=== PATIENT | female | born 1945 | race Caucasian/White ===

== ENCOUNTER 2021-10-26 19:14 | Inpatient (IN) | payer MEDICARE, OTHER ==
[~2021-10-26] VITALS: Ht 152.4 cm; Wt 68.9 kg
[~2021-10-26 19:14] MED LIST: ALENDRONATE SOD70 MG PO; ASPIR 8181 MG PO; ASPIRIN81 MG PO; ATENOLOL50 MG PO; CALCIUM 600 +1 EACH PO; CALCIUM/VITAMIN D PO; CEFDINIR300 MG PO; CEFUROXIME250 MG PO; CETIRIZINE HCL10 MG PO; CLOPIDOGREL75 MG PO; CORTISPORIN-TC10 M1 LEFT EAR; FIORICET 50-301 EACH PO; GABAPENTIN300 MG PO; GLIMEPIRIDE2 MG PO; GLIPIZIDE10 MG PO; GLIPIZIDE5 MG PO; JANUVIA100 MG PO; L-ARGININE500 MG PO; LANTUS 3ML100 UNITS/ SC; LANTUS100 UNITS/ INJ; LEVOTHYROXINE50 MCG PO; LEVOTHYROXINE75 MCG PO; LEVOTHYROXINE88 MCG PO; LOSARTAN POTAS100 MG PO; METFORMIN HCL1000 MG PO; METFORMIN HCL500 MG PO; NITROSTAT0.4 MG SL; NOVOLIN N100 UNIT/1 SC; OMEPRAZOLE20 M1 PO; OSENI PO; PANTOPRAZOLE SO40 MG PO; SIMVASTATIN40 MG PO; ULTRAM50 MG PO; VICTOZA 2-0.6 MG/0.1 SC; ZESTRIL20 MG PO; calcium PO
[2021-10-26] MEDS ORDERED: SODIUM CHLORIDE 0.9% 1000ML 1,000 ML IV SCH (20:00)
[2021-10-26 20:13] LABS: BASOPHILS % 0.2 % (0.0-1.0); EOSINOPHILS % 0.1 % (0.0-6.0); HEMATOCRIT 32.5 % (34.2-44.1); HEMOGLOBIN 10.7 g/dL (12.0-16.0); LYMPHOCYTES # (AUTO) 0.9 (1.0-3.2); LYMPHOCYTES % 10.6 % (18.0-39.1); MEAN CORPUSCULAR HEMOGLOBIN 28.1 pg (28-32); MEAN CORPUSCULAR HGB CONC 32.9 g/dL (31-35); MEAN CORPUSCULAR VOLUME 85.3 fL (81-99); MONOCYTES # (AUTO) 0.6 (0.2-0.8); MONOCYTES % 7.4 % (4.4-11.3); NEUTROPHILS % 81.5 % (38.7-80.0); PLATELET COUNT 166 x10e3/uL (140-360); RED BLOOD COUNT 3.81 x10e6/uL (3.6-5.1)
[2021-10-26 20:34] LABS: ALBUMIN 3.3 g/dL (3.5-5.0); ALBUMIN/GLOBULIN RATIO 0.7 (0.8-2.0); ANION GAP 13.3 mmol/L (8-16); CALCIUM 8.3 mg/dL (8.4-10.2); CREATININE, SERUM 2.08 mg/dL (0.57-1.11); POTASSIUM 4.3 mmol/L (3.5-5.1)
[2021-10-26] MEDS ORDERED: ACETAMINOPHEN 325 MG TAB PO ONE (21:00)
[2021-10-26] MEDS ORDERED: ACETAMINOPHEN 325 MG TAB ONE (21:04)
[2021-10-26 22:57] LABS: CLARITY,URINE SL CLOUDY (CLEAR); COLOR,URINE YELLOW (YELLOW); KETONES,URINE NEGATIVE (NEGATIVE); LEUKOCYTE ESTERASE ,URINE NEGATIVE (NEGATIVE); NITRITE,URINE NEGATIVE (NEGATIVE); PROTEIN,URINE DIPSTICK TRACE (NEGATIVE); URINE UROBILINOGEN 0.2 mg/dL (0.2 - 1)
[2021-10-26 23:14] LABS: BACTERIA,URINE MANY /HPF; EPITHELIAL CELLS,URINE FEW /LPF; WBC,URINE (MAN) >50 /HPF (0-5)
[2021-10-26] MEDS ORDERED: CEFTRIAXONE 1 GM VIAL IV ONE (23:30)
[2021-10-26] MEDS ORDERED: LACTATED RINGER'S 1,000 ML INJ ONE (23:30)
[2021-10-26] MEDS ORDERED: CEFTRIAXONE SOD 1 GM 50 ML IV ONE (23:30)
[2021-10-26] MEDS ORDERED: CEFTRIAXONE 1 GM VIAL ONE (23:37)
[2021-10-27] VITALS (9 sets, daily range): BP systolic 119–180; BP diastolic 55–88
[2021-10-27] MEDS: SODIUM CHLORIDE 0.9% 1000ML 1,000 ML IV SCH ×3 (01:33→18:37)
[2021-10-27] MEDS ORDERED: JARDIANCE25 MG (02:34)
[2021-10-27] MEDS ORDERED: ONDANSETRON HCL INJ 2MG/ML 2ML 2 MG/ML VIAL IV PRN ×2 (07:00→15:30)
[2021-10-27 08:39] LABS: BASOPHILS % 0.3 % (0.0-1.0); EOSINOPHILS % 0.1 % (0.0-6.0); HEMATOCRIT 30.6 % (34.2-44.1); HEMOGLOBIN 9.8 g/dL (12.0-16.0); LYMPHOCYTES # (AUTO) 0.9 (1.0-3.2); LYMPHOCYTES % 11.8 % (18.0-39.1); MEAN CORPUSCULAR HEMOGLOBIN 27.3 pg (28-32); MEAN CORPUSCULAR VOLUME 85.2 fL (81-99); MONOCYTES # (AUTO) 0.6 (0.2-0.8); MONOCYTES % 8.3 % (4.4-11.3); PLATELET COUNT 144 x10e3/uL (140-360); RED BLOOD COUNT 3.59 x10e6/uL (3.6-5.1); RED CELL DISTRIBUTION WIDTH 15.9 % (11.7-14.4)
[2021-10-27 09:17] LABS: ANION GAP 10.9 mmol/L (8-16); CALCIUM 7.7 mg/dL (8.4-10.2); CREATININE, SERUM 1.35 mg/dL (0.57-1.11); POTASSIUM 3.9 mmol/L (3.5-5.1)
[2021-10-27] MEDS ORDERED: HYDRALAZINE HCL 20 MG/ML VIAL IV PRN (15:30)
[2021-10-27] MEDS ORDERED: POTASSIUM CHLORIDE 20 MEQ TAB CR PO PRN (15:30)
[2021-10-27] MEDS ORDERED: DOCUSATE SODIUM 100 MG CAP PO PRN (15:30)
[2021-10-27] MEDS ORDERED: BENZONATATE 100 MG CAP PO PRN (15:30)
[2021-10-27] MEDS ORDERED: DIPHENHYDRAMINE HCL 25 MG CAP PO PRN (15:30)
[2021-10-27] MEDS ORDERED: CEFTRIAXONE 1 GM in SODIUM CHLORIDE 0.9% 50ML 50 ML IV SCH (15:30)
[2021-10-27] MEDS ORDERED: ACETAMINOPHEN 325 MG TAB PO PRN (15:30)
[2021-10-27] MEDS ORDERED: CHLORASEPTIC SPRAY 177 ML BTL MM PRN (15:30)
[2021-10-27] MEDS ORDERED: MELATONIN 5 MG TABLET PO PRN (15:30)
[2021-10-27] MEDS ORDERED: DEXTROSE 50% SYRINGE 50 ML IV PRN ×2 (15:30)
[2021-10-27] MEDS ORDERED: LIDOCAINE 4% PATCH TP PRN (15:30)
[2021-10-27] MEDS ORDERED: PHENAZOPYRIDINE HCL 100 MG TAB PO PRN (15:30)
[2021-10-27 16:07] LABS: % IRON SATURATION 3 % (15-50); IRON 9 ug/dL (50-170); TOTAL IRON BINDING CAPACITY 290 ug/dL (261-478); TRANSFERRIN 207 mg/dL (180-382)
[2021-10-27] MEDS: CEFEPIME 1 GM in SODIUM CHLORIDE 0.9% 50ML 50 ML IV SCH ×2 (16:46→23:44)
[2021-10-27] MEDS: ENOXAPARIN SOD INJ 40 MG/0.4 ML SYR SC SCH (16:46)
[2021-10-27] MEDS: SIMVASTATIN 20 MG TAB PO SCH (20:45)
[2021-10-27] MEDS: ATENOLOL 50 MG TAB PO SCH (21:00)
[2021-10-28] VITALS (8 sets, daily range): BP systolic 118–150; BP diastolic 60–75
[2021-10-28] MEDS: LEVOTHYROXINE SODIUM 100 MCG TAB PO SCH (05:43)
[2021-10-28 07:49] LABS: BASOPHILS % 0.2 % (0.0-1.0); EOSINOPHILS % 0.4 % (0.0-6.0); HEMATOCRIT 29.1 % (34.2-44.1); HEMOGLOBIN 9.5 g/dL (12.0-16.0); LYMPHOCYTES # (AUTO) 1.1 (1.0-3.2); LYMPHOCYTES % 19.9 % (18.0-39.1); MEAN CORPUSCULAR HGB CONC 32.6 g/dL (31-35); MEAN CORPUSCULAR VOLUME 85.8 fL (81-99); MONOCYTES # (AUTO) 0.6 (0.2-0.8); MONOCYTES % 11.3 % (4.4-11.3); NEUTROPHILS # (AUTO) 3.7 (2.1-6.9); PLATELET COUNT 143 x10e3/uL (140-360); RED BLOOD COUNT 3.39 x10e6/uL (3.6-5.1); RED CELL DISTRIBUTION WIDTH 16.1 % (11.7-14.4)
[2021-10-28 08:05] LABS: ANION GAP 10.8 mmol/L (8-16); CALCIUM 7.6 mg/dL (8.4-10.2); CREATININE, SERUM 1.23 mg/dL (0.57-1.11); POTASSIUM 3.8 mmol/L (3.5-5.1)
[2021-10-28] MEDS: PANTOPRAZOLE SOD 40 MG TABEC PO SCH (08:30)
[2021-10-28] MEDS: SODIUM CHLORIDE 0.9% 1000ML 1,000 ML IV SCH ×2 (08:56→18:00)
[2021-10-28] MEDS: CEFEPIME 1 GM in SODIUM CHLORIDE 0.9% 50ML 50 ML IV SCH (08:57)
[2021-10-28] MEDS: LOSARTAN POTASSIUM 100 MG TAB PO SCH (08:59)
[2021-10-28] MEDS: ASPIRIN 81 MG CHEW TAB PO SCH (08:59)
[2021-10-28] MEDS: CLOPIDOGREL BISULFATE 75 MG TAB PO SCH (08:59)
[2021-10-28] MEDS ORDERED: ASPIRIN 81 MG CHEW TAB PO SCH (09:00)
[2021-10-28] MEDS ORDERED: PANTOPRAZOLE SOD 40 MG TABEC PO SCH (09:00)
[2021-10-28] MEDS: ENOXAPARIN SOD INJ 40 MG/0.4 ML SYR SC SCH (16:48)
[2021-10-28] MEDS ORDERED: CEFTRIAXONE 1 GM in SODIUM CHLORIDE 0.9% 50ML 50 ML IV SCH (17:00)
[2021-10-28] MEDS: SIMVASTATIN 20 MG TAB PO SCH (20:28)
[2021-10-28] MEDS: ATENOLOL 50 MG TAB PO SCH (20:28)
[2021-10-29] VITALS: BP 152/74
[2021-10-29 04:00] VITALS: BP 132/68
[2021-10-29] MEDS: LEVOTHYROXINE SODIUM 100 MCG TAB PO SCH (05:01)
[2021-10-29] MEDS: SODIUM CHLORIDE 0.9% 1000ML 1,000 ML IV SCH (05:02)
[2021-10-29 07:04] LABS: ANION GAP 12.1 mmol/L (8-16); CALCIUM 7.9 mg/dL (8.4-10.2); CREATININE, SERUM 1.25 mg/dL (0.57-1.11); POTASSIUM 4.1 mmol/L (3.5-5.1)
[2021-10-29 08:01] VITALS: BP 111/68
[2021-10-29 08:12] VITALS: BP 111/68
[2021-10-29] MEDS: PANTOPRAZOLE SOD 40 MG TABEC PO SCH (09:06)
[2021-10-29] MEDS: LOSARTAN POTASSIUM 100 MG TAB PO SCH (09:06)
[2021-10-29] MEDS: CLOPIDOGREL BISULFATE 75 MG TAB PO SCH (09:06)
[2021-10-29] MEDS: ASPIRIN 81 MG CHEW TAB PO SCH (09:06)
[2021-10-29 11:40] VITALS: BP 156/73
[2021-10-29] MEDS ORDERED: ONDANSETRON HCL 4 MG ORAL DISINTEGRATING TAB PO PRN (15:00)
[2021-10-29 16:21] VITALS: BP 149/78
== END 2021-10-29 16:42 | disposition home or self-care (01) | DRG 690 ==
LOC: ER 19:25 → ERHOLD 23:54 → UNDOADMOB 10-27 00:27 → ERHOLD 10-27 00:27 → MED/SURG3 10-27 01:12 → ERHOLD 10-27 01:12 → INTOOBSV 10-28 08:00 → OBSVTOIN 10-28 08:00
PROVIDERS: ADMIT Internal Medicine; ATTEND Internal Medicine
DX: N39.0 Urinary tract infection, site not specified (principal); N17.9 Acute kidney failure, unspecified; Z16.19 Resistance to other specified beta lactam antibiotics; E11.9 Type 2 diabetes mellitus without complications; I10 Essential (primary) hypertension; I25.10 Atherosclerotic heart disease of native coronary artery without angina pectoris; E86.0 Dehydration; Z20.822 Contact with and (suspected) exposure to COVID-19; B96.20 Unspecified Escherichia coli [E. coli] as the cause of diseases classified elsewhere
CPT/HCPCS: 36415; 70450; 71045; 80048; 80053; 81001; 82948; 83540; 83605; 84466; 84484; 85025; 87040; 87086; 87186; 93005; 94799; 99284; G0378; J0692; J0696; J1650; J2405; J7030; J7121; U0002

== ENCOUNTER 2022-01-22 18:29 | Emergency (ER) | payer MEDICARE, OTHER ==
[~2022-01-22] VITALS: Ht 152.4 cm; Wt 68.9 kg
[~2022-01-22 18:29] MED LIST changes: +JARDIANCE25 MG
[2022-01-22] MEDS ORDERED: DEXAMETHASONE SOD PHOS 10 MG/1 ML VIAL IM ONE (20:30)
[2022-01-22] MEDS ORDERED: DEXAMETHASONE SOD PHOS INJ 4 MG/ML SDV ONE (20:39)
[2022-01-22 20:54] VITALS: BP 169/88
== END 2022-01-22 20:54 | disposition home or self-care (01) ==
LOC: FSED 18:37
DX: M25.522 Pain in left elbow (principal); M71.522 Other bursitis, not elsewhere classified, left elbow; E11.65 Type 2 diabetes mellitus with hyperglycemia; E78.5 Hyperlipidemia, unspecified; I10 Essential (primary) hypertension; I25.10 Atherosclerotic heart disease of native coronary artery without angina pectoris; E03.9 Hypothyroidism, unspecified; Z95.5 Presence of coronary angioplasty implant and graft
CPT/HCPCS: 73080; 80053; 81003; 85025; 96372; 99284; J1100

== ENCOUNTER → 2022-01-24 | Outpatient (CLI) | payer MEDICARE, OTHER ==
[~2022-01-24] MED LIST changes: +IOPAMIDOL 370 MG/ML 100 ML INFUS..BTL INJ ONE; +METOPROLOL TARTRATE 25 MG TAB ONE; +METOPROLOL TARTRATE INJ 1 MG/ML VIAL ONE; +NITROGLYCERIN 0.4 MG SUBL ONE; +SODIUM CHLORIDE 0.9% 100 ML ONE; +SODIUM CHLORIDE 0.9% 250ML 500 ML ONE
[2022-01-24 08:58] LABS: CREATININE, SERUM 1.73 mg/dL (0.57-1.11)
== END ==
LOC: CT 07:51
PROVIDERS: ATTEND Internal Medicine Interventional Cardiology
DX: I10 Essential (primary) hypertension (principal); I20.9 Angina pectoris, unspecified
CPT/HCPCS: 36415; 75574; 82565; 84520; J7050 ×2; Q9967

== ENCOUNTER 2022-12-09 17:11 | Observation (INO) | payer MEDICARE, OTHER ==
[~2022-12-09] VITALS: Ht 149.9 cm; Wt 64.4 kg
[~2022-12-09 17:11] MED LIST changes: -IOPAMIDOL 370 MG/ML 100 ML INFUS..BTL INJ ONE; -METOPROLOL TARTRATE 25 MG TAB ONE; -METOPROLOL TARTRATE INJ 1 MG/ML VIAL ONE; -NITROGLYCERIN 0.4 MG SUBL ONE; -SODIUM CHLORIDE 0.9% 100 ML ONE; -SODIUM CHLORIDE 0.9% 250ML 500 ML ONE
[2022-12-09] MEDS ORDERED: SODIUM CHLORIDE 0.9% 1000ML 1,000 ML IV SCH (18:30)
[2022-12-09] MEDS ORDERED: SODIUM CHLORIDE 0.9% 100 ML ONE (18:33)
[2022-12-09] MEDS ORDERED: IOPAMIDOL 370 MG/ML 100 ML INFUS..BTL INJ ONE (18:33)
[2022-12-09] MEDS ORDERED: SODIUM CHLORIDE 0.9% 500ML 500 ML ONE (21:28)
[2022-12-09] MEDS ORDERED: SODIUM CHLORIDE FLUSH 10 ML SYR INJ PRN (21:30)
[2022-12-09] MEDS ORDERED: ONDANSETRON HCL INJ 2MG/ML 2ML 2 MG/ML VIAL IV PRN (21:30)
[2022-12-09] MEDS ORDERED: SODIUM CHLORIDE 0.9% 500ML 500 ML IV ONE (21:30)
[2022-12-09] MEDS ORDERED: DEXTROSE 50% SYRINGE 50 ML IV PRN (21:30)
[2022-12-09 23:40] VITALS: BP 169/75; PULSE 66; RESP 18; TEMP 97.4; O2SAT 98
[2022-12-10 00:15] VITALS: BP 114/60; PULSE 66; RESP 18; TEMP 98.1; O2SAT 100
[2022-12-10 04:00] VITALS: BP_SYST 102; BP_SYST 126; BP_DIAS 56; BP_DIAS 74; PULSE 64; RESP 17; TEMP 98.4; O2SAT 100; O2SAT 99
[2022-12-10 05:56] LABS: BASOPHILS % 0.1 % (0.0-1.0); EOSINOPHILS # (AUTO) 0.1 (0.0-0.4); EOSINOPHILS % 1.2 % (0.0-6.0); HEMOGLOBIN 10.8 g/dL (12.0-16.0); LYMPHOCYTES # (AUTO) 2.3 (1.0-3.2); LYMPHOCYTES % 30.5 % (18.0-39.1); MEAN CORPUSCULAR HEMOGLOBIN 28.8 pg (28-32); MEAN CORPUSCULAR HGB CONC 32.7 g/dL (31-35); MONOCYTES # (AUTO) 0.5 (0.2-0.8); MONOCYTES % 7.3 % (4.4-11.3); NEUTROPHILS # (AUTO) 4.5 (2.1-6.9); NEUTROPHILS % 60.4 % (38.7-80.0); PLATELET COUNT 170 x10e3/uL (140-360); RED BLOOD COUNT 3.75 x10e6/uL (3.6-5.1); RED CELL DISTRIBUTION WIDTH 15.7 % (11.7-14.4)
[2022-12-10 06:04] LABS: CREATINE KINASE MB 4.3 ng/mL (0-5.0)
[2022-12-10 06:23] LABS: ALBUMIN 2.8 g/dL (3.5-5.0); ALBUMIN/GLOBULIN RATIO 0.8 (0.8-2.0); ANION GAP 13.7 mmol/L (8-16); CALCIUM 7.9 mg/dL (8.4-10.2); CREATININE, SERUM 1.12 mg/dL (0.57-1.11); POTASSIUM 3.7 mmol/L (3.5-5.1)
[2022-12-10] MEDS ORDERED: INSULIN LISPRO 100 UNIT/1 ML 3ML VIAL SQ SCH (07:30)
[2022-12-10 08:03] VITALS: BP 121/68; PULSE 67; RESP 17; TEMP 97.8; O2SAT 98
[2022-12-10 09:48] VITALS: BP 121/62; PULSE 67; RESP 17; TEMP 97.8; O2SAT 98
== END 2022-12-10 11:49 | disposition home or self-care (01) ==
LOC: FSED 17:24 → ERHOLD 21:28 → MED/SURG 23:40
PROVIDERS: ADMIT Internal Medicine; ATTEND Internal Medicine
DX: E11.649 Type 2 diabetes mellitus with hypoglycemia without coma (principal); R20.0 Anesthesia of skin; E11.22 Type 2 diabetes mellitus with diabetic chronic kidney disease; I12.9 Hypertensive chronic kidney disease with stage 1 through stage 4 chronic kidney disease, or unspecified chronic kidney disease; N18.9 Chronic kidney disease, unspecified; I25.10 Atherosclerotic heart disease of native coronary artery without angina pectoris; E78.5 Hyperlipidemia, unspecified; I25.2 Old myocardial infarction; E03.9 Hypothyroidism, unspecified; Z88.6 Allergy status to analgesic agent; Z88.0 Allergy status to penicillin; Z88.8 Allergy status to other drugs, medicaments and biological substances; Z91.018 Allergy to other foods; Z91.048 Other nonmedicinal substance allergy status; Z20.822 Contact with and (suspected) exposure to COVID-19; Z79.4 Long term (current) use of insulin; Z79.85 Long-term (current) use of injectable non-insulin antidiabetic drugs; Z79.84 Long term (current) use of oral hypoglycemic drugs; Z79.02 Long term (current) use of antithrombotics/antiplatelets; Z79.82 Long term (current) use of aspirin; Z79.899 Other long term (current) drug therapy; Z95.5 Presence of coronary angioplasty implant and graft
CPT/HCPCS: 0223U; 36415; 70450; 70496; 70498; 80053 ×2; 82550; 82553 ×2; 82948; 83735; 84100; 84484 ×2; 85025 ×2; 93005; 99284; G0378 ×2; J7040; J7050; Q9967